=== PATIENT | female | born 1960 | race Caucasian/White ===

== ENCOUNTER 2016-07-16 06:50 | Day surgery (SDC) | payer MEDICAID ==
[~2016-07-16] VITALS: Ht 167.6 cm; Wt 83.5 kg
[~2016-07-16 06:50] MED LIST: ALBU18HF INH; BUPR150T13 PO; HYDR25TA11 PO; METF10002 PO; METF850T PO; cholesterol med
[2016-07-16 08:07] VITALS: BP 152/88
[2016-07-16] MEDS ORDERED: LACTATED RINGERS 1,000 ML IV SCH (08:11)
[2016-07-16 08:13] LABS: HEMOGLOBIN 16.7 g/dL (11.7-16.4)
[2016-07-16 08:17] LABS: BLOOD UREA NITROGEN 24 mg/dL (7-18)
[2016-07-16] MEDS ORDERED: LIDOCAINE 2%, 20ML ONE (08:24)
[2016-07-16] MEDS ORDERED: PROTAMINE SULFATE 10 MG/ML, 25ML ONE (08:44)
[2016-07-16] MEDS ORDERED: MIDAZOLAM 1 MG/ML, 5ML ONE (08:45)
[2016-07-16] MEDS ORDERED: FENTANYL PF 100 MCG/2ML ONE (08:45)
[2016-07-16] MEDS ORDERED: FLUMAZENIL 0.1 MG/1 ML, 5ML ONE (08:45)
[2016-07-16] MEDS ORDERED: HEPARIN 1,000 UNITS/ML, 10ML ONE (08:45)
[2016-07-16] MEDS ORDERED: NALOXONE 1 MG/ML, 2ML ONE (08:45)
[2016-07-16] MEDS ORDERED: VISIPAQUE 270 MG/ML, 150ML BOTTLE ONE (09:00)
[2016-07-16] MEDS ORDERED: CLOPIDOGREL 75 MG TABLET ONE (10:16)
[2016-07-16] MEDS ORDERED: CLOPIDOGREL 75 MG TABLET PO ONE (10:30)
== END 2016-07-16 14:30 | disposition home or self-care (01) ==
LOC: OUT 06:50
PROVIDERS: ATTEND Surgery Vascular Surgery
DX: I70.212 Atherosclerosis of native arteries of extremities with intermittent claudication, left leg (principal); E11.9 Type 2 diabetes mellitus without complications; F17.290 Nicotine dependence, other tobacco product, uncomplicated
CPT/HCPCS: 36415; 37221; 75625; 75716; 80048; 82962; 85025; C1725; C1751; C1760; C1769; C1876; C1894; J1644; J2250; J2720; J3010; J3490; J7120; Q9966; 99156; 99157; J2310

== ENCOUNTER 2017-11-04 18:30 | Emergency (ER) | payer MEDICAID ==
[~2017-11-04] VITALS: Ht 165.1 cm; Wt 80.0 kg
[2017-11-04 19:18] LABS: BASOPHILS # (AUTO) 0.05 x10^3/uL (0-0.1); BASOPHILS % (AUTO) 1 % (0-1); EOSINOPHILS # (AUTO) 0.21 x10^3/uL (0-0.4); EOSINOPHILS % (AUTO) 2 % (1-7); LYMPHOCYTES # (AUTO) 2.92 x10^3/uL (1-3.4); LYMPHOCYTES % (AUTO) 29 % (22-44); MD NO; MEAN CORPUSCULAR HEMOGLOBIN 30.1 pg (27.0-34.8); MEAN CORPUSCULAR HGB CONC 33.5 g/dL (32.4-35.8); MEAN PLATELET VOLUME 10.5 fL (7.4-10.4); MONOCYTES # (AUTO) 0.71 x10^3/uL (0.2-0.8); MONOCYTES % (AUTO) 7 % (2-9); NEUTROPHILS # (AUTO) 6.07 x10^3/uL (1.8-6.8); NEUTROPHILS % (AUTO) 61 % (42-75); PLATELET COUNT 223 x10^3/uL (130-400); RED BLOOD COUNT 5.68 x10^6/uL (3.82-5.3); RED CELL DISTRIBUTION WIDTH 14.2 % (9.6-15.2)
[2017-11-04 19:29] VITALS: BP 114/66
[2017-11-04 19:30] LABS: ALBUMIN 3.7 g/dL (3.4-5.0); ANION GAP 8 mmol/L (5-15); CALCIUM 8.9 mg/dL (8.5-10.1); CHLORIDE 103 mmol/L (98-107)
[2017-11-04 19:31] LABS: CREATININE 1.08 mg/dL (0.55-1.02)
== END 2017-11-04 21:07 | disposition home or self-care (01) ==
LOC: ED 20:11
DX: I70.311 Atherosclerosis of unspecified type of bypass graft(s) of the extremities with intermittent claudication, right leg (principal); J44.9 Chronic obstructive pulmonary disease, unspecified; E78.5 Hyperlipidemia, unspecified; F17.200 Nicotine dependence, unspecified, uncomplicated
CPT/HCPCS: 36415; 80048; 82040; 85025; 99284

== ENCOUNTER 2017-12-19 08:51 | Inpatient (IN) | payer MEDICAID ==
[~2017-12-19] VITALS: Ht 167.6 cm; Wt 85.0 kg
[2017-12-19] MEDS ORDERED: SODIUM CHLORIDE FLUSH 10ML SYR IVF ONE (09:30)
[2017-12-19] MEDS ORDERED: MORPHINE SULFATE 4 MG/ML, 1ML ONE ×2 (09:30→11:51)
[2017-12-19] MEDS: MORPHINE SULFATE 4 MG/ML, 1ML IVPush PRN ×2 (09:33→11:53)
[2017-12-19 09:58] LABS: BASOPHILS # (AUTO) 0.03 x10^3/uL (0-0.1); BASOPHILS % (AUTO) 0 % (0-1); EOSINOPHILS # (AUTO) 0.17 x10^3/uL (0-0.4); EOSINOPHILS % (AUTO) 2 % (1-7); LYMPHOCYTES # (AUTO) 1.98 x10^3/uL (1-3.4); LYMPHOCYTES % (AUTO) 25 % (22-44); MD NO; MEAN CORPUSCULAR HEMOGLOBIN 30.3 pg (27.0-34.8); MEAN CORPUSCULAR HGB CONC 34.2 g/dL (32.4-35.8); MEAN CORPUSCULAR VOLUME 88.6 fL (80-100); MONOCYTES % (AUTO) 7 % (2-9); NEUTROPHILS % (AUTO) 66 % (42-75); PLATELET COUNT 184 x10^3/uL (130-400); RED CELL DISTRIBUTION WIDTH 13.6 % (9.6-15.2)
[2017-12-19 10:05] LABS: INTERNATIONAL NORMALIZED RATIO 0.92 (0.93-1.1); PROTHROMBIN TIME 9.5 Seconds (9.6-11.5)
[2017-12-19] MEDS ORDERED: CHANTIX (10:07)
[2017-12-19] MEDS ORDERED: METFORMIN (10:07)
[2017-12-19 10:09] LABS: ALANINE AMINOTRANSFERASE 27 U/L (12-78); ALBUMIN 3.5 g/dL (3.4-5.0); ANION GAP 9 mmol/L (5-15); CHLORIDE 104 mmol/L (98-107); CREATININE 1.03 mg/dL (0.55-1.02)
[2017-12-19 10:11] LABS: ALKALINE PHOSPHATASE 160 U/L (45-117); BILIRUBIN,TOTAL 0.6 mg/dL (0.2-1.0); TOTAL PROTEIN 7.6 g/dL (6.4-8.2)
[2017-12-19] MEDS ORDERED: OMNIPAQUE 350 MG/ML, 150 ML BOTTLE ONE (12:43)
[2017-12-19] MEDS ORDERED: SODIUM CHLORIDE 0.9% 1,000 ML IV ONE ×2 (13:40→13:43)
[2017-12-19] MEDS ORDERED: MORPHINE SULFATE 4 MG/ML, 1ML IVPush PRN (14:00)
[2017-12-19] MEDS ORDERED: SODIUM CHLORIDE FLUSH 10ML SYR IVF PRN (14:00)
[2017-12-19] MEDS ORDERED: LIDOCAINE-MPF 2%, 2ML ONE ×2 (14:20→15:40)
[2017-12-19] MEDS ORDERED: SODIUM CHLORIDE 0.9% 1,000 ML IV SCH (14:30)
[2017-12-19] MEDS ORDERED: DIPHENHYDRAMINE 50 MG/ML, 1ML IVPush PRN (14:30)
[2017-12-19] MEDS ORDERED: ONDANSETRON ODT 4 MG PO PRN (14:30)
[2017-12-19] MEDS ORDERED: morphine SULFATE 10 MG/ML, 1ML IVPush PRN (14:30)
[2017-12-19] MEDS ORDERED: ACETAMINOPHEN 325 MG TABLET PO PRN (14:30)
[2017-12-19] MEDS ORDERED: DOCUSATE 100 MG CAPSULE PO PRN (14:30)
[2017-12-19] MEDS ORDERED: POLYETHYLENE GLYCOL 17 GM PACKET PO PRN (14:30)
[2017-12-19] MEDS ORDERED: ONDANSETRON 2MG/ML, 2ML IVPush PRN (14:30)
[2017-12-19 14:55] VITALS: BP 133/87
[2017-12-19 15:06] LABS: HEMOGLOBIN A1C 11.1 % (4.2-6.3)
[2017-12-19] MEDS ORDERED: FENTANYL PF 100 MCG/2ML ONE ×2 (15:57→15:58)
[2017-12-19] MEDS ORDERED: MIDAZOLAM 1 MG/ML, 5ML ONE (15:58)
[2017-12-19] MEDS ORDERED: HEPARIN 5,000 UNITS/ML, 1ML ONE (15:58)
[2017-12-19] MEDS ORDERED: FLUMAZENIL 0.1 MG/1 ML, 5ML ONE (15:58)
[2017-12-19] MEDS ORDERED: PROTAMINE SULFATE 10 MG/ML, 25ML ONE (15:59)
[2017-12-19] MEDS ORDERED: NALOXONE 1 MG/ML, 2ML ONE (15:59)
[2017-12-19] MEDS: INSULIN LISPRO 100 UNITS/ML, PEN SQ-INSULIN SCH ×2 (16:00→20:50)
[2017-12-19] MEDS ORDERED: INSULIN LISPRO 100 UNITS/ML, PEN SQ-INSULIN SCH (16:00)
[2017-12-19] MEDS ORDERED: DIPHENHYDRAMINE 50 MG/ML, 1ML IVPush ONE ×2 (17:00→18:30)
[2017-12-19] MEDS ORDERED: DIPHENHYDRAMINE 50 MG/ML, 1ML ONE (17:18)
[2017-12-19] MEDS ORDERED: VISIPAQUE 270 MG/ML, 50ML BOTTLE ONE (17:21)
[2017-12-19] MEDS: SODIUM CHLORIDE 0.9% 1,000 ML IV SCH ×2 (18:30→19:30)
[2017-12-19 18:38] VITALS: BP 131/78
[2017-12-19] MEDS: CLOPIDOGREL 75 MG TABLET PO SCH (20:38)
[2017-12-19] MEDS ORDERED: ALBUTEROL SULFATE 2.5 MG/3 ML NPPB SCH (21:00)
[2017-12-20 00:19] VITALS: BP 111/75
[2017-12-20] MEDS ORDERED: HYDR-3237 PO (03:35)
[2017-12-20 04:17] VITALS: BP 108/72
[2017-12-20] MEDS: SODIUM CHLORIDE 0.9% 1,000 ML IV SCH ×4 (04:30→15:30)
[2017-12-20 05:18] LABS: ANION GAP 7 mmol/L (5-15); CALCIUM 8.7 mg/dL (8.5-10.1); CHLORIDE 105 mmol/L (98-107)
[2017-12-20 05:22] LABS: BASOPHILS # (AUTO) 0.04 x10^3/uL (0-0.1); BASOPHILS % (AUTO) 1 % (0-1); EOSINOPHILS # (AUTO) 0.15 x10^3/uL (0-0.4); EOSINOPHILS % (AUTO) 2 % (1-7); LYMPHOCYTES # (AUTO) 2.08 x10^3/uL (1-3.4); LYMPHOCYTES % (AUTO) 31 % (22-44); MD NO; MEAN CORPUSCULAR HGB CONC 33.9 g/dL (32.4-35.8); MEAN CORPUSCULAR VOLUME 88.5 fL (80-100); MEAN PLATELET VOLUME 10.2 fL (7.4-10.4); MONOCYTES # (AUTO) 0.62 x10^3/uL (0.2-0.8); MONOCYTES % (AUTO) 9 % (2-9); NEUTROPHILS # (AUTO) 3.83 x10^3/uL (1.8-6.8); NEUTROPHILS % (AUTO) 57 % (42-75); PLATELET COUNT 184 x10^3/uL (130-400); RED BLOOD COUNT 5.07 x10^6/uL (3.82-5.3); RED CELL DISTRIBUTION WIDTH 13.9 % (9.6-15.2)
[2017-12-20] MEDS: OXYcodone/APAP 5/325MG TABLET PO PRN ×4 (07:59→21:27)
[2017-12-20] MEDS: CLOPIDOGREL 75 MG TABLET PO SCH (07:59)
[2017-12-20] MEDS: INSULIN LISPRO 100 UNITS/ML, PEN SQ-INSULIN SCH ×4 (08:01→21:26)
[2017-12-20 09:01] VITALS: BP 106/70
[2017-12-20 14:29] VITALS: BP 100/63
[2017-12-20] MEDS ORDERED: ALBUTEROL SULFATE 2.5 MG/3 ML NPPB PRN (14:30)
[2017-12-20 15:11] VITALS: BP 118/69
[2017-12-20 18:39] VITALS: BP 107/65
[2017-12-20] MEDS ORDERED: INSULIN GLARGINE 100 UNITS/ML, PEN SQ-INSULIN SCH (21:00)
[2017-12-21] MEDS: SODIUM CHLORIDE 0.9% 1,000 ML IV SCH ×3 (00:30→01:05)
[2017-12-21] MEDS: OXYcodone/APAP 5/325MG TABLET PO PRN ×3 (01:39→12:04)
[2017-12-21 01:44] VITALS: BP 114/63
[2017-12-21 05:43] LABS: CHLORIDE 103 mmol/L (98-107)
[2017-12-21 05:48] LABS: ANION GAP 9 mmol/L (5-15); CALCIUM 9.2 mg/dL (8.5-10.1); CREATININE 0.83 mg/dL (0.55-1.02)
[2017-12-21 05:51] LABS: BASOPHILS # (AUTO) 0.04 x10^3/uL (0-0.1); BASOPHILS % (AUTO) 1 % (0-1); EOSINOPHILS # (AUTO) 0.22 x10^3/uL (0-0.4); EOSINOPHILS % (AUTO) 3 % (1-7); LYMPHOCYTES # (AUTO) 2.85 x10^3/uL (1-3.4); LYMPHOCYTES % (AUTO) 39 % (22-44); MD NO; MEAN CORPUSCULAR HEMOGLOBIN 30.4 pg (27.0-34.8); MEAN CORPUSCULAR VOLUME 89.5 fL (80-100); MONOCYTES # (AUTO) 0.58 x10^3/uL (0.2-0.8); MONOCYTES % (AUTO) 8 % (2-9); NEUTROPHILS # (AUTO) 3.65 x10^3/uL (1.8-6.8); NEUTROPHILS % (AUTO) 50 % (42-75); PLATELET COUNT 176 x10^3/uL (130-400); RED BLOOD COUNT 5.02 x10^6/uL (3.82-5.3); RED CELL DISTRIBUTION WIDTH 14.1 % (9.6-15.2)
[2017-12-21 07:00] VITALS: BP 109/62
[2017-12-21] MEDS: INSULIN LISPRO 100 UNITS/ML, PEN SQ-INSULIN SCH ×2 (07:00→12:05)
[2017-12-21] MEDS: CLOPIDOGREL 75 MG TABLET PO SCH (09:29)
[2017-12-21 12:16] VITALS: BP 107/67
[2017-12-21] MEDS ORDERED: PNEUMOCOCCAL 23 VACCINE IM-VACC ONE (13:30)
[2017-12-21] MEDS ORDERED: CLOP75TA52 PO (14:29)
[2017-12-21] MEDS ORDERED: OXYC-302 PO (14:29)
== END 2017-12-21 14:50 | disposition home or self-care (01) | DRG 254 ==
LOC: ED 13:42 → EDIP 13:43 → ED 13:54 → 4NOR 14:44
PROVIDERS: ADMIT Hospitalist; ATTEND Hospitalist
PROC: 047H3DZ Dilation of Right External Iliac Artery with Intraluminal Device, Percutaneous Approach (ICD-10-PCS; principal; 2017-12-19)
PROC: B41F1ZZ Fluoroscopy of Right Lower Extremity Arteries using Low Osmolar Contrast (ICD-10-PCS; 2017-12-19)
DX: T82.856A Stenosis of peripheral vascular stent, initial encounter (principal); E11.51 Type 2 diabetes mellitus with diabetic peripheral angiopathy without gangrene; E11.65 Type 2 diabetes mellitus with hyperglycemia; E78.5 Hyperlipidemia, unspecified; F12.90 Cannabis use, unspecified, uncomplicated; F17.200 Nicotine dependence, unspecified, uncomplicated; G40.909 Epilepsy, unspecified, not intractable, without status epilepticus; R16.1 Splenomegaly, not elsewhere classified; R23.0 Cyanosis; Y83.8 Other surgical procedures as the cause of abnormal reaction of the patient, or of later complication, without mention of misadventure at the time of the procedure; I70.8 Atherosclerosis of other arteries; I99.8 Other disorder of circulatory system; J44.9 Chronic obstructive pulmonary disease, unspecified; Z79.84 Long term (current) use of oral hypoglycemic drugs; Z90.49 Acquired absence of other specified parts of digestive tract; Z71.51 Drug abuse counseling and surveillance of drug abuser; Y92.89 Other specified places as the place of occurrence of the external cause; Z90.710 Acquired absence of both cervix and uterus; Z88.0 Allergy status to penicillin; Z88.2 Allergy status to sulfonamides; Z82.49 Family history of ischemic heart disease and other diseases of the circulatory system; Z88.5 Allergy status to narcotic agent
CPT/HCPCS: 36415; 37221; 75635; 75710; 76937; 80048; 80053; 82962; 83036; 84443; 85025; 85610; 85730; 90732; 93005; 93922; 93926; 96365; 96375; 99156; 99157; C1725; C1894; J1644; J2250; J2405; J2720; J3010; J3490; Q9966; Q9967; C1751; C1760; C1769; C1876; J1200; J1815; J2310; J7030

== ENCOUNTER 2018-06-05 20:43 | Inpatient (IN) | payer MEDICAID ==
[~2018-06-05] VITALS: Ht 166.4 cm; Wt 83.0 kg
[~2018-06-05 20:43] MED LIST changes: +CHANTIX; +CLOP75TA52 PO; +HYDR-3237 PO; +METFORMIN; +OXYC-302 PO
--- NOTE | 2018-06-05 21:21 | NUR ---
AMBULATORY TO RM FROM LOBBY AT THIS TIME
[2018-06-05] MEDS ORDERED: ASPIRIN 81 MG TABLET CHEW ONE (21:50)
[2018-06-05] MEDS ORDERED: DIAZEPAM 5 MG TABLET ONE (21:51)
[2018-06-05] MEDS ORDERED: METF500T17 PO (21:56)
[2018-06-05] MEDS ORDERED: EMPA10TA PO (21:56)
[2018-06-05] MEDS ORDERED: DIAZEPAM 5 MG TABLET PO ONE (22:00)
[2018-06-05] MEDS ORDERED: ASPIRIN 81 MG TABLET CHEW PO ONE (22:00)
--- NOTE | 2018-06-05 22:03 | NUR ---
PT REPORTING R GOING PAIN SINCE FRIDAY, HAS A "STENT PLACED IN MY MAIN VESSEL" 6 MONTHS AGO, PT SAYS IT'S BEEN FINE UNTIL FRIDAY AFTER HER DOCTORS APPT. PT ALSO SAYS SHE WOKE UP WITH R SHOULDER/NECK/CHEST PAINS THIS MORNING, UNSURE IF SHE SLEPT WRONG OR IF IT FEEL CARDIAC IN NATURE. ALL MONITORS ATTACHED, MED REC DONE, PT AWARE OF POC.
--- NOTE | 2018-06-05 22:05 | NUR ---
PT ALSO C/O SOB MILD SOB, O2 SAT 95%, PLACED ON 2L PROPHALACTICALLY, MEDS GIVEN.
[2018-06-05 22:09] LABS: BASOPHILS # (AUTO) 0.05 x10^3/uL (0-0.1); BASOPHILS % (AUTO) 1 % (0-1); EOSINOPHILS # (AUTO) 0.23 x10^3/uL (0-0.4); EOSINOPHILS % (AUTO) 3 % (1-7); LYMPHOCYTES # (AUTO) 3.38 x10^3/uL (1-3.4); LYMPHOCYTES % (AUTO) 39 % (22-44); MD NO; MEAN CORPUSCULAR HEMOGLOBIN 29.9 pg (27.0-34.8); MEAN CORPUSCULAR HGB CONC 33.7 g/dL (32.4-35.8); MEAN CORPUSCULAR VOLUME 88.9 fL (80-100); MEAN PLATELET VOLUME 9.3 fL (7.4-10.4); MONOCYTES # (AUTO) 0.67 x10^3/uL (0.2-0.8); MONOCYTES % (AUTO) 8 % (2-9); NEUTROPHILS # (AUTO) 4.32 x10^3/uL (1.8-6.8); NEUTROPHILS % (AUTO) 50 % (42-75); PLATELET COUNT 239 x10^3/uL (130-400); RED CELL DISTRIBUTION WIDTH 15.1 % (9.6-15.2)
[2018-06-05 22:16] LABS: ALANINE AMINOTRANSFERASE 22 U/L (12-78); ALBUMIN 3.7 g/dL (3.4-5.0); ANION GAP 8 mmol/L (5-15); CALCIUM 9.1 mg/dL (8.5-10.1); CHLORIDE 106 mmol/L (98-107); CREATININE 0.86 mg/dL (0.55-1.02)
[2018-06-05 22:21] LABS: ALKALINE PHOSPHATASE 133 U/L (45-117); BILIRUBIN,TOTAL 0.3 mg/dL (0.2-1.0); TOTAL PROTEIN 7.9 g/dL (6.4-8.2); TROPONIN I < 0.015 ng/mL (0.000-0.045)
--- NOTE | 2018-06-05 23:03 | NUR ---
ALL RESULTS BACK, PT UP FOR RECHECK.
--- NOTE | 2018-06-05 23:09 | NUR ---
PROVIDER AT BEDSIDE.
[2018-06-05] MEDS ORDERED: MORPHINE SULFATE 4 MG/ML, 1ML ONE (23:24)
[2018-06-05] MEDS ORDERED: ONDANSETRON 2MG/ML, 2ML ONE (23:24)
[2018-06-05] MEDS ORDERED: ONDANSETRON 2MG/ML, 2ML IVPush ONE (23:30)
[2018-06-05] MEDS ORDERED: morphine SULFATE 10 MG/ML, 1ML IVPush ONE (23:30)
[2018-06-05] MEDS ORDERED: MORPHINE SULFATE 4 MG/ML, 1ML IVPush PRN (23:30)
--- NOTE | 2018-06-05 23:44 | NUR ---
PIV placed, pt medicated for pain and nausea medication.
--- NOTE | 2018-06-05 23:49 | NUR ---
ADMITTING MD AT BEDSIDE.
[2018-06-06] MEDS ORDERED: MORPHINE SULFATE 4 MG/ML, 1ML IVPush PRN
[2018-06-06] MEDS ORDERED: ONDANSETRON 2MG/ML, 2ML IVPush PRN
--- NOTE | 2018-06-06 00:21 | NUR ---
REPORT TO FLOOR SHELLIE PURDY.
[2018-06-06] MEDS ORDERED: IBUPROFEN 600 MG TABLET PO PRN (00:30)
[2018-06-06] MEDS ORDERED: ONDANSETRON 2MG/ML, 2ML IVP PRN (00:30)
[2018-06-06] MEDS ORDERED: ONDANSETRON ODT 4 MG PO PRN (00:30)
[2018-06-06] MEDS ORDERED: KETOROLAC 30 MG/1 ML IV PRN (00:30)
[2018-06-06] MEDS ORDERED: NITROGLYCERIN 0.4 MG/SPRAY SL PRN (00:30)
[2018-06-06] MEDS ORDERED: DEXTROSE 4 GM TAB.CHEW PO PRN (00:30)
[2018-06-06] MEDS ORDERED: POLYETHYLENE GLYCOL 17 GM PACKET PO PRN (00:30)
[2018-06-06] MEDS ORDERED: NITROGLYCERIN 0.4 MG BOTTLE (25 TABS) SL PRN (00:30)
[2018-06-06] MEDS ORDERED: ACETAMINOPHEN 325 MG TABLET PO PRN (00:30)
[2018-06-06] MEDS ORDERED: hydrALAzine 20 MG/ML, 1ML IVPush PRN (00:30)
[2018-06-06] MEDS ORDERED: DEXTROSE 50%, 50ML SYRINGE IVPush PRN (00:30)
[2018-06-06] MEDS ORDERED: ENALAPRILAT 1.25 MG/ML, 2ML IVPush PRN (00:30)
[2018-06-06] MEDS ORDERED: ASPIRIN 325 MG TABLET EC PO ONE (00:30)
[2018-06-06] MEDS ORDERED: GLUCAGON 1 MG IM PRN (00:30)
[2018-06-06 00:43] VITALS: BP 104/61
[2018-06-06] MEDS ORDERED: ALBUTEROL SULFATE 2.5 MG/3 ML NPPB PRN (01:00)
[2018-06-06 01:11] LABS: CHOL/HDL RATIO 4.9; LDL/HDL RATIO 3.1 (0.5-3.0)
[2018-06-06 01:19] LABS: TROPONIN I < 0.015 ng/mL (0.000-0.045)
[2018-06-06] MEDS: ENOXAPARIN 40 MG/0.4 ML SQ SCH (01:40)
[2018-06-06] MEDS: LACTATED RINGERS 1,000 ML IV SCH ×3 (01:41→20:30)
[2018-06-06] MEDS: NICOTINE 21 MG/24 HR PATCH.TD24 TD SCH (01:44)
[2018-06-06 03:29] LABS: BASOPHILS # (AUTO) 0.04 x10^3/uL (0-0.1); BASOPHILS % (AUTO) 1 % (0-1); EOSINOPHILS # (AUTO) 0.21 x10^3/uL (0-0.4); EOSINOPHILS % (AUTO) 3 % (1-7); LYMPHOCYTES # (AUTO) 3.02 x10^3/uL (1-3.4); LYMPHOCYTES % (AUTO) 35 % (22-44); MD NO; MEAN CORPUSCULAR HEMOGLOBIN 29.5 pg (27.0-34.8); MEAN CORPUSCULAR VOLUME 91.9 fL (80-100); MEAN PLATELET VOLUME 9.5 fL (7.4-10.4); MONOCYTES # (AUTO) 0.66 x10^3/uL (0.2-0.8); MONOCYTES % (AUTO) 8 % (2-9); NEUTROPHILS % (AUTO) 54 % (42-75); PLATELET COUNT 186 x10^3/uL (130-400); RED BLOOD COUNT 5.49 x10^6/uL (3.82-5.3); RED CELL DISTRIBUTION WIDTH 14.5 % (9.6-15.2)
[2018-06-06 03:35] LABS: ALANINE AMINOTRANSFERASE 113 U/L (12-78); ALBUMIN 3.3 g/dL (3.4-5.0); ANION GAP 6 mmol/L (5-15); CALCIUM 8.8 mg/dL (8.5-10.1); CHLORIDE 107 mmol/L (98-107)
[2018-06-06 03:37] LABS: ALKALINE PHOSPHATASE 135 U/L (45-117); BILIRUBIN,TOTAL 0.8 mg/dL (0.2-1.0); CREATININE 0.83 mg/dL (0.55-1.02); TOTAL PROTEIN 7.1 g/dL (6.4-8.2)
[2018-06-06 03:48] LABS: TROPONIN I < 0.015 ng/mL (0.000-0.045)
[2018-06-06 05:49] LABS: ALANINE AMINOTRANSFERASE 124 U/L (12-78)
[2018-06-06 05:52] LABS: ALKALINE PHOSPHATASE 142 U/L (45-117)
[2018-06-06 07:17] LABS: INTERNATIONAL NORMALIZED RATIO 0.97 (0.93-1.1); PROTHROMBIN TIME 10.3 Seconds (9.6-11.5)
[2018-06-06 07:40] VITALS: BP 91/57
[2018-06-06] MEDS: SODIUM CHLORIDE FLUSH 10ML SYR IVF SCH ×4 (08:46→21:00)
[2018-06-06] MEDS: LISINOPRIL 5 MG TABLET PO SCH (08:47)
[2018-06-06] MEDS: SENNA/DOCUSATE TABLET PO SCH (08:47)
[2018-06-06] MEDS: GABAPENTIN 100 MG CAPSULE PO SCH ×2 (08:47→21:02)
[2018-06-06] MEDS ORDERED: REGADENOSON 0.4 MG/5 ML SYRINGE ONE (08:55)
[2018-06-06] MEDS: INSULIN LISPRO 100 UNITS/ML, PEN SQ-INSULIN SCH ×4 (08:55→21:03)
[2018-06-06] MEDS: BUDESONIDE 0.5 MG/2 ML INHA NPPB SCH ×2 (09:00→23:00)
[2018-06-06 12:58] VITALS: BP 105/69
[2018-06-06 19:29] VITALS: BP 109/62
[2018-06-06] MEDS ORDERED: ATORVASTATIN 40 MG TABLET PO SCH (21:00)
[2018-06-07] MEDS: NICOTINE 21 MG/24 HR PATCH.TD24 TD SCH (00:29)
[2018-06-07] MEDS: ENOXAPARIN 40 MG/0.4 ML SQ SCH (00:29)
[2018-06-07 00:54] VITALS: BP 113/70
[2018-06-07 05:23] LABS: ALBUMIN 3.1 g/dL (3.4-5.0); ANION GAP 5 mmol/L (5-15); CALCIUM 8.7 mg/dL (8.5-10.1); CHLORIDE 107 mmol/L (98-107)
[2018-06-07 05:27] LABS: ALANINE AMINOTRANSFERASE 75 U/L (12-78); ALKALINE PHOSPHATASE 134 U/L (45-117); BILIRUBIN,TOTAL 0.6 mg/dL (0.2-1.0); CREATININE 0.76 mg/dL (0.55-1.02)
[2018-06-07] MEDS ORDERED: ASPIRIN 325 MG TABLET EC PO SCH (06:00)
[2018-06-07] MEDS: SENNA/DOCUSATE TABLET PO SCH (07:55)
[2018-06-07] MEDS: LISINOPRIL 5 MG TABLET PO SCH (07:55)
[2018-06-07] MEDS: GABAPENTIN 100 MG CAPSULE PO SCH (07:58)
[2018-06-07] MEDS: SODIUM CHLORIDE FLUSH 10ML SYR IVF SCH ×2 (07:59)
[2018-06-07] MEDS: INSULIN LISPRO 100 UNITS/ML, PEN SQ-INSULIN SCH ×2 (08:03→11:07)
[2018-06-07] MEDS ORDERED: MAALOX/HYOSCYAMINE/LIDOCAINE 45 ML BTL PO ONE (08:30)
[2018-06-07 08:47] VITALS: BP 110/69
[2018-06-07] MEDS ORDERED: LIDODERM 5% PATCH TD ONE (11:30)
[2018-06-07 15:59] VITALS: BP 122/58
== END 2018-06-07 16:49 | disposition home or self-care (01) | DRG 316 ==
LOC: MERGE 20:43 → ED 22:53 → EDIP 06-06 00:25 → 5SO 06-06 00:36
PROVIDERS: ADMIT Family Medicine; ATTEND Family Medicine
DX: T82.898A Other specified complication of vascular prosthetic devices, implants and grafts, initial encounter (principal); E11.42 Type 2 diabetes mellitus with diabetic polyneuropathy; E11.51 Type 2 diabetes mellitus with diabetic peripheral angiopathy without gangrene; E78.5 Hyperlipidemia, unspecified; F17.200 Nicotine dependence, unspecified, uncomplicated; F12.10 Cannabis abuse, uncomplicated; G40.909 Epilepsy, unspecified, not intractable, without status epilepticus; I20.9 Angina pectoris, unspecified; R10.31 Right lower quadrant pain; I11.0 Hypertensive heart disease with heart failure; I50.9 Heart failure, unspecified; K76.0 Fatty (change of) liver, not elsewhere classified; Y83.8 Other surgical procedures as the cause of abnormal reaction of the patient, or of later complication, without mention of misadventure at the time of the procedure; J44.9 Chronic obstructive pulmonary disease, unspecified; Z90.49 Acquired absence of other specified parts of digestive tract; Z79.82 Long term (current) use of aspirin; Z90.710 Acquired absence of both cervix and uterus; Z95.820 Peripheral vascular angioplasty status with implants and grafts; Z88.0 Allergy status to penicillin; Y92.89 Other specified places as the place of occurrence of the external cause; Z88.8 Allergy status to other drugs, medicaments and biological substances
CPT/HCPCS: 36415; 71045; 76705; 78452; 80053; 80061; 80074; 82962; 83690; 84075; 84450; 84460; 84484; 85025; 85610; 85730; 87496; 93005; 93017; 93922; 93926; 96374; 96375; 96376; G0378; J1650; J2405; J2785; J7626; A9502; C9898; J1815; J7120

== ENCOUNTER 2018-08-02 18:06 | Emergency (ER) | payer SELFPAY ==
[~2018-08-02] VITALS: Ht 165.1 cm; Wt 81.7 kg
[~2018-08-02 18:06] MED LIST changes: +EMPA10TA PO; +METF500T17 PO
--- NOTE | 2018-08-02 18:58 | NUR ---
WARM BLANKETS PROVIDED, CALL LIGHT WITHIN REACH. UNABLE TO PALPATE R PEDAL PULSE, NO PULSE WITH DOPPLER EITHER. PT C/O COLDNESS TO R FOOT AND [place] AREA, WARMTH EQUAL TO BLE TO TOUCH. SLIGHT DISCOLORATION TO R FOOT, R BIG TOE WITH PURPLE DISCOLORATION.
[2018-08-02] MEDS ORDERED: OMNIPAQUE 350 MG/ML, 100ML BOTTLE ONE (19:06)
[2018-08-02 19:38] LABS: BASOPHILS # (AUTO) 0.03 x10^3/uL (0-0.1); BASOPHILS % (AUTO) 0 % (0-1); EOSINOPHILS # (AUTO) 0.23 x10^3/uL (0-0.4); EOSINOPHILS % (AUTO) 3 % (1-7); LYMPHOCYTES # (AUTO) 2.95 x10^3/uL (1-3.4); LYMPHOCYTES % (AUTO) 34 % (22-44); MD NO; MEAN CORPUSCULAR HEMOGLOBIN 30.4 pg (27.0-34.8); MEAN CORPUSCULAR HGB CONC 33.6 g/dL (32.4-35.8); MEAN CORPUSCULAR VOLUME 90.3 fL (80-100); MEAN PLATELET VOLUME 9.5 fL (7.4-10.4); MONOCYTES # (AUTO) 0.42 x10^3/uL (0.2-0.8); MONOCYTES % (AUTO) 5 % (2-9); NEUTROPHILS # (AUTO) 5.02 x10^3/uL (1.8-6.8); NEUTROPHILS % (AUTO) 58 % (42-75); PLATELET COUNT 192 x10^3/uL (130-400); RED BLOOD COUNT 5.52 x10^6/uL (3.82-5.3)
[2018-08-02 19:48] LABS: ANION GAP 6 mmol/L (5-15); CHLORIDE 107 mmol/L (98-107); CREATININE 0.89 mg/dL (0.55-1.02)
--- NOTE | 2018-08-02 20:11 | NUR ---
PT BACK FROM CTA. AWAITING RESULTS.
[2018-08-02 20:17] VITALS: BP 137/78
--- NOTE | 2018-08-02 21:07 | NUR ---
PT SLEEPING, CONTINUE TO AWAIT CTA REACH. REPORT TO CELESTE RN, TRANSFER OF CARE AT THIS TIME.
== END 2018-08-02 21:45 | disposition home or self-care (01) ==
LOC: ED 18:52
DX: I70.79 Other atherosclerosis of other type of bypass graft(s) of the extremities (principal); J44.9 Chronic obstructive pulmonary disease, unspecified; E11.65 Type 2 diabetes mellitus with hyperglycemia; E78.5 Hyperlipidemia, unspecified; G40.909 Epilepsy, unspecified, not intractable, without status epilepticus
CPT/HCPCS: 36415; 73706; 80048; 83605; 85025; 93005; 99284; Q9967